=== PATIENT | female | born 1990 | race Native Hawaiian/Other Pacific Islander ===

== ENCOUNTER 2018-03-05 21:12 | Emergency (ER) | payer BC ==
[~2018-03-05] VITALS: Ht 157.5 cm; Wt 73.5 kg
[2018-03-05] MEDS ORDERED: PRENATAL1 T10 PO (21:49)
[2018-03-05 22:25] VITALS: BP 109/74; TEMP 99.5
== END 2018-03-05 22:25 | disposition home or self-care (01) ==
LOC: ED 21:12
DX: O20.9 Hemorrhage in early pregnancy, unspecified (principal); Z3A.01 Less than 8 weeks gestation of pregnancy
CPT/HCPCS: 81000; 81025; 99284